=== PATIENT | female | born 1950 | race Caucasian/White ===

== ENCOUNTER 2020-10-21 13:11 | Observation (INO) ==
[2020-10-21] MEDS ORDERED: SODIUM CHLORIDE 0.9% 1,000 ML IV STA (13:45)
[2020-10-21 14:01] LABS: INR 1.2; PT Patient Result 12.3 SECS (9.8-11.9)
[2020-10-21 14:13] LABS: Alanine Aminotransferase 22 U/L (13-56); Albumin 3.1 G/DL (3.4-5.0); Alkaline Phosphatase 215 U/L (45-117); Aspartate Amino Transferase 35 U/L (0-37); Blood Urea Nitrogen 27 MG/DL (7-18); Calcium 8.7 MG/DL (8.5-10.1); Carbon Dioxide 26 MMOL/L (21-32); Estimated Glom Filtration Rate 46 ML/MIN; Glucose 162 MG/DL (74-106); Osmolality,Calculated 285.5 MOS/KG (273-304); Potassium 5.1 MMOL/L (3.5-5.1); Sodium 139 MMOL/L (136-145); Total Protein 7.1 G/DL (6.4-8.3)
[2020-10-21 15:42] LABS: Basophils % 0.7 % (0.0-0.8); Eosinophils # 0.1 10*3/uL (0.0-0.87); Eosinophils % 0.8 % (0.00-10.9); Hematocrit 34.6 VOL% (35.7-47.0); Hemoglobin 11.6 GM/DL (12.0-16.0); Immature Granulocytes % 0.3 %; Immature Granulocytes Absolute 0.02 #; Lymphocytes # 1.1 10*3/uL (1.4-4.0); Lymphocytes % 17.6 % (21.3-54.2); Mean Corpuscular HGB Conc 33.5 GM/DL (32-36); Mean Corpuscular Volume 95.8 FL (87-102); Mean Platelet Volume 10.4 FL (9.6-12.0); Monocytes % 11.2 % (1.7-12.7); Neutrophils % 69.4 % (38.7-73.9); Red Blood Count 3.61 MC/CUMM (3.8-5.5); Red Cell Distribution Width 15.1 % (9.3-17.3); White Blood Count 6.2 T/CUMM (4-12)
[2020-10-21 15:43] LABS: Platelet Count 54 T/CUMM (130-400)
[2020-10-21 15:50] LABS: Bacteria,Urine Occasional /HPF (Few); Bilirubin,Urine Negative (Negative); Blood, Urine Moderate mg/dL (Negative); Glucose,Urine (UA) Negative (Negative); Ketones,Urine Negative (Negative); Mucus,Urine Occasional /LPF (Occasional); Nitrite,Urine Negative (Negative); Protein,Urine 100 MG/DL; RBC,Urine 74 /HPF (0-4); Squamous Epithelial Cell,Urine Occasional /HPF (0-10); Triple Phosphate Crystal,Urine Occasional /HPF (Few); Urine Appearance CLOUDY (Clear); Urine Color Amber (Yellow); Urine Specific Gravity 1.015 (1.001-1.035); WBC,Urine 19 /HPF (0-6)
[2020-10-21] MEDS ORDERED: cefTRIAXone 1,000 MG in SODIUM CHLORIDE 0.9% 100 ML IV STA (15:51)
[2020-10-21 15:55] LABS: Barbiturates Screen,Urine Negative (Negative); Benzodiazepines Screen,Urine Negative (Negative); Cannabinoid Screen,Urine Negative (Negative); Opiate Screen,Urine Positive (Negative); Phencyclidine Screen,Urine Negative (Negative)
[2020-10-21] MEDS ORDERED: ONDANSETRON 4 MG/2 ML VIAL IV PRN (16:19)
[2020-10-21] MEDS ORDERED: NICOTINE 21 MG/24 HR PATCH TRANSDERM PRN (16:19)
[2020-10-21] MEDS ORDERED: GLUCAGON 1 MG VIAL IM PRN ×2 (16:19→16:23)
[2020-10-21] MEDS ORDERED: MORPHINE 4 MG/1 ML VIAL IV PRN (16:19)
[2020-10-21] MEDS ORDERED: DEXTROSE 50% 25 GM/50 ML VIAL IV PRN ×2 (16:19→16:23)
[2020-10-21 16:23] LABS: Platelet Estimate Decreased
[2020-10-21] MEDS ORDERED: hydrALAZINE 20 MG/1 ML VIAL IV PRN (16:23)
[2020-10-21] MEDS ORDERED: cefTRIAXone 1,000 MG in SYRINGE 1 EACH IV SCH (16:30)
[2020-10-21] MEDS: SODIUM CHLORIDE 0.9% 1,000 ML IV SCH (17:40)
[2020-10-21] MEDS ORDERED: PRAMIPEXOLE 0.25 MG TABLET PO SCH (21:00)
[2020-10-21] MEDS: LACTULOSE 20 GM/30 ML UDCUP PO SCH (21:52)
[2020-10-21] MEDS: GABAPENTIN 600 MG TABLET PO SCH (21:55)
[2020-10-21] MEDS: cilostazoL 50 MG TABLET PO SCH (21:55)
[2020-10-21] MEDS: SUCRALFATE 1 GM TABLET PO SCH (21:56)
[2020-10-21] MEDS: INSULIN REGULAR 100 UNIT/ML SUBCUT SCH (21:56)
[2020-10-21] MEDS: PANTOPRAZOLE 40 MG TABLET PO SCH (21:59)
[2020-10-22] MEDS: ALBUTEROL 2.5 MG/3 ML NEB RESP TX SCH ×4 (05:13→12:35)
[2020-10-22 05:57] LABS: Basophils % 0.6 % (0.0-0.8); Hematocrit 34.2 VOL% (35.7-47.0); Hemoglobin 11.5 GM/DL (12.0-16.0); Immature Granulocytes % 0.4 %; Immature Granulocytes Absolute 0.02 #; Lymphocytes # 0.9 10*3/uL (1.4-4.0); Lymphocytes % 17.6 % (21.3-54.2); Mean Corpuscular HGB Conc 33.6 GM/DL (32-36); Mean Corpuscular Volume 96.1 FL (87-102); Mean Platelet Volume 10.5 FL (9.6-12.0); Monocytes % 13.2 % (1.7-12.7); Neutrophils % 68.2 % (38.7-73.9); Red Blood Count 3.56 MC/CUMM (3.8-5.5); Red Cell Distribution Width 14.8 % (9.3-17.3); White Blood Count 5.1 T/CUMM (4-12)
[2020-10-22 05:59] LABS: Platelet Count 50 T/CUMM (130-400)
[2020-10-22 06:16] LABS: Albumin 2.5 G/DL (3.4-5.0); Bilirubin,Total 2.1 MG/DL (0.2-1.0); Calcium 8.4 MG/DL (8.5-10.1); Osmolality,Calculated 287.4 MOS/KG (273-304); Potassium 4.8 MMOL/L (3.5-5.1); Risk Ratio 3.44; Total Protein 6.2 G/DL (6.4-8.3); VLDL CHOLESTEROL 18.4 MG/DL
[2020-10-22] MEDS: GABAPENTIN 600 MG TABLET PO SCH ×4 (06:19→16:50)
[2020-10-22 06:29] LABS: Hypochromasia 1+; Microcytosis 1+; Platelet Estimate Decreased
[2020-10-22] MEDS ORDERED: ENOXAPARIN 30 MG/0.3 ML SYRINGE SUBCUT SCH (09:00)
[2020-10-22] MEDS ORDERED: ASPIRIN EC 81 MG TABLET PO SCH (09:00)
[2020-10-22] MEDS ORDERED: VENLAFAXINE XR 37.5 MG CAPSULE PO SCH (09:00)
[2020-10-22] MEDS ORDERED: FERROUS SULFATE 325 MG TABLET PO SCH (09:00)
[2020-10-22] MEDS ORDERED: METOPROLOL SUCCINATE XL 50 MG TABLET PO SCH (09:00)
[2020-10-22] MEDS ORDERED: allopurinoL 100 MG TABLET PO SCH (09:00)
[2020-10-22] MEDS ORDERED: SIMVASTATIN 40 MG TABLET PO SCH (09:00)
[2020-10-22] MEDS: INSULIN REGULAR 100 UNIT/ML SUBCUT SCH ×3 (09:14→16:50)
[2020-10-22] MEDS: SUCRALFATE 1 GM TABLET PO SCH ×3 (10:38→16:50)
[2020-10-22] MEDS: PANTOPRAZOLE 40 MG TABLET PO SCH (10:39)
[2020-10-22] MEDS: LACTULOSE 20 GM/30 ML UDCUP PO SCH (10:40)
[2020-10-22] MEDS: SODIUM CHLORIDE 0.9% 1,000 ML IV SCH (11:38)
[2020-10-22] MEDS: cilostazoL 50 MG TABLET PO SCH (12:51)
[2020-10-22] MEDS ORDERED: cefTRIAXone 1,000 MG in SYRINGE 1 EACH IV SCH (14:00)
[2020-10-22] MEDS ORDERED: DESITIN 4OZ/NYSTATIN 15 GRAM MIXTURE PASTE TOP SCH (14:30)
[2020-10-22 16:38] VITALS: BP 145/64
== END 2020-10-22 18:10 | disposition home health service (06) ==
LOC: EDUNIT# → EDBD → N.EDINP 13:11 → N.ED 13:11 → N.EDINP 18:30 → N.4E 18:41
PROVIDERS: ADMIT Internal Medicine; ATTEND Internal Medicine

== ENCOUNTER 2021-10-15 16:59 | Inpatient (IN) ==
[2021-10-15 19:03] LABS: Albumin 2.4 G/DL (3.4-5.0); Bilirubin,Total 0.8 MG/DL (0.20-1.00); Calcium 9.4 MG/DL (8.5-10.1); Osmolality,Calculated 303.2 MOS/KG (273-304); Potassium 4.4 MMOL/L (3.5-5.1); Total Protein 7.2 G/DL (6.4-8.2)
[2021-10-15 19:04] LABS: Lactic Acid 1.4 MMOL/L (0.4-2.0)
[2021-10-15 19:07] LABS: Basophils # 0.1 10*3/uL (0.0-0.2); Basophils % 0.6 % (0.0-0.8); Hematocrit 33.2 VOL% (35.7-47.0); Hemoglobin 10.2 GM/DL (12.0-16.0); Immature Granulocytes % 0.7 %; Immature Granulocytes Absolute 0.07 #; Lymphocytes # 1.1 10*3/uL (1.4-4.0); Lymphocytes % 11.2 % (21.3-54.2); Mean Corpuscular HGB Conc 30.7 GM/DL (32-36); Mean Corpuscular Volume 100.9 FL (87-102); Mean Platelet Volume 10.6 FL (9.6-12.0); Monocytes % 11.2 % (1.7-12.7); Neutrophils % 76.3 % (38.7-73.9); Platelet Count 112 T/CUMM (130-400); Red Blood Count 3.29 MC/CUMM (3.8-5.5); Red Cell Distribution Width 14.6 % (9.3-17.3); White Blood Count 9.8 T/CUMM (4-12)
[2021-10-15 19:39] LABS: ABG Base Excess 3.1 MMOL/L (-2.5-2.5); ABG HCO3 27.1 MMOL/L (20-26); ABG Oxygen Saturation 92.7 % (95-100); ABG PH 7.265 (7.35-7.45); ABG PO2 70.7 MM HG (80-95); ABG TCO2 29.6 MMOL/L (23-27)
[2021-10-15 19:43] LABS: ABG PCO2 70.8 MM HG (35-48)
[2021-10-15] MEDS ORDERED: SODIUM CHLORIDE 0.9% 500 ML IV STA (19:47)
[2021-10-15] MEDS ORDERED: ACETAMINOPHEN 325 MG TABLET PO PRN (20:05)
[2021-10-15] MEDS ORDERED: GLUCAGON 1 MG VIAL IM PRN (20:05)
[2021-10-15] MEDS ORDERED: ONDANSETRON 4 MG/2 ML VIAL IV PRN (20:05)
[2021-10-15] MEDS ORDERED: DEXTROSE 50% 25 GM/50 ML SYRINGE IV PRN (20:05)
[2021-10-15] MEDS ORDERED: hydrALAZINE 20 MG/1 ML VIAL IV PRN (20:05)
[2021-10-15 20:07] LABS: INR 1.1; PT Patient Result 11.9 SECS (10.5-12.0); Partial Thromboplastin Time 26.8 SECS (23.8-32.1)
[2021-10-15 20:07] LABS: Bilirubin,Urine Negative (Negative); Blood, Urine Large mg/dL (Negative); Glucose,Urine (UA) Negative (Negative); Ketones,Urine Negative (Negative); Mucus,Urine Occasional /LPF (Occasional); Nitrite,Urine Negative (Negative); Protein,Urine 30 MG/DL; RBC,Urine 225 /HPF (0-4); Squamous Epithelial Cell,Urine Occasional /HPF (0-10); Urine Appearance Slightly Hazy (Clear); Urine Color Amber (Yellow); Urine Specific Gravity 1.015 (1.001-1.035); Urine Urobilinogen < 2.0 EU/DL (0.2-1.0)
[2021-10-15 20:12] LABS: Barbiturates Screen,Urine Negative (Negative); Benzodiazepines Screen,Urine Negative (Negative); Cannabinoid Screen,Urine Negative (Negative); Opiate Screen,Urine Positive (Negative); Phencyclidine Screen,Urine Negative (Negative)
[2021-10-15] MEDS ORDERED: cefTRIAXone 1,000 MG in SODIUM CHLORIDE 0.9% 100 ML IV STA (20:14)
[2021-10-15] MEDS: LACTULOSE 20 GM/30 ML UDCUP PO SCH (21:46)
[2021-10-15 22:24] LABS: ABG Base Excess 3.9 MMOL/L (-2.5-2.5); ABG HCO3 27.6 MMOL/L (20-26); ABG Oxygen Saturation 80.7 % (95-100); ABG PCO2 64.9 MM HG (35-48); ABG PH 7.301 (7.35-7.45); ABG TCO2 29.6 MMOL/L (23-27)
[2021-10-15] MEDS ORDERED: VANCOMYCIN INJ 3,000 MG in SODIUM CHLORIDE 0.9% 500 ML IV ONE (23:00)
[2021-10-15] MEDS ORDERED: ZINC OXIDE PASTE 113 GM TUBE TOP PRN (23:35)
[2021-10-16] MEDS: LACTULOSE 20 GM/30 ML UDCUP PO SCH ×6 (00:40→22:24)
[2021-10-16] MEDS: INSULIN REGULAR 100 UNIT/ML SUBCUT SCH ×5 (00:41→22:25)
[2021-10-16 01:07] LABS: ABG Base Excess 4.4 MMOL/L (-2.5-2.5); ABG HCO3 28.3 MMOL/L (20-26); ABG Oxygen Saturation 90.6 % (95-100); ABG PCO2 64.5 MM HG (35-48); ABG PH 7.308 (7.35-7.45); ABG PO2 62.7 MM HG (80-95); ABG TCO2 29.9 MMOL/L (23-27)
[2021-10-16 07:19] LABS: Basophils # 0.1 10*3/uL (0.0-0.2); Basophils % 0.6 % (0.0-0.8); Eosinophils % 0.1 % (0.00-10.9); Hematocrit 32.8 VOL% (35.7-47.0); Hemoglobin 10.1 GM/DL (12.0-16.0); Immature Granulocytes % 0.5 %; Immature Granulocytes Absolute 0.04 #; Lymphocytes # 1.1 10*3/uL (1.4-4.0); Lymphocytes % 12.9 % (21.3-54.2); Mean Corpuscular HGB Conc 30.8 GM/DL (32-36); Mean Corpuscular Volume 101.5 FL (87-102); Mean Platelet Volume 10.4 FL (9.6-12.0); Monocytes % 11.3 % (1.7-12.7); Neutrophils % 74.6 % (38.7-73.9); Platelet Count 96 T/CUMM (130-400); Red Blood Count 3.23 MC/CUMM (3.8-5.5); Red Cell Distribution Width 14.6 % (9.3-17.3); White Blood Count 8.3 T/CUMM (4-12)
[2021-10-16 07:20] LABS: Calcium 9.3 MG/DL (8.5-10.1); Potassium 4.4 MMOL/L (3.5-5.1); Risk Ratio 2.93; Thyroid Stimulating Hormone 1.32 uIU/ml (0.358-3.74)
[2021-10-16 07:37] LABS: Hypochromasia 1+; Macrocytosis 1+; Polychromasia Slight
[2021-10-16 07:38] LABS: Platelet Estimate Decreased
[2021-10-16] MEDS ORDERED: PIPERACILLIN/TAZOBACTAM 3,375 MG in SODIUM CHLORIDE 0.9% 100 ML IV SCH (08:00)
[2021-10-16] MEDS ORDERED: PANTOPRAZOLE 40 MG TABLET PO SCH (09:00)
[2021-10-16] MEDS: PANTOPRAZOLE 40 MG VIAL IV SCH (09:56)
[2021-10-16] MEDS: cefTRIAXone 2,000 MG in SODIUM CHLORIDE 0.9% 100 ML IV SCH (17:10)
[2021-10-16] MEDS: AZITHROMYCIN INJ 500 MG in SODIUM CHLORIDE 0.9% 250 ML IV SCH (18:08)
[2021-10-17] MEDS: LACTULOSE 20 GM/30 ML UDCUP PO SCH ×6 (01:48→21:20)
[2021-10-17 02:26] LABS: ABG Base Excess 4.4 MMOL/L (-2.5-2.5); ABG HCO3 27.5 MMOL/L (20-26); ABG Oxygen Saturation 48.2 % (95-100); ABG PCO2 66.9 MM HG (35-48); ABG PH 7.296 (7.35-7.45); ABG TCO2 30.4 MMOL/L (23-27)
[2021-10-17 02:31] LABS: ABG PO2 30.2 MM HG (80-95)
[2021-10-17] MEDS ORDERED: LACTULOSE 320 GM/480 ML BOTTLE RECTAL ONE (02:56)
[2021-10-17 05:53] LABS: Basophils # 0.1 10*3/uL (0.0-0.2); Basophils % 0.7 % (0.0-0.8); Hematocrit 33.1 VOL% (35.7-47.0); Hemoglobin 10.3 GM/DL (12.0-16.0); Immature Granulocytes % 0.7 %; Immature Granulocytes Absolute 0.07 #; Lymphocytes # 1.6 10*3/uL (1.4-4.0); Lymphocytes % 15.5 % (21.3-54.2); Mean Corpuscular HGB Conc 31.1 GM/DL (32-36); Mean Corpuscular Volume 101.2 FL (87-102); Mean Platelet Volume 10.3 FL (9.6-12.0); Monocytes % 12.1 % (1.7-12.7); Platelet Count 90 T/CUMM (130-400); Red Blood Count 3.27 MC/CUMM (3.8-5.5); Red Cell Distribution Width 14.8 % (9.3-17.3); White Blood Count 10.2 T/CUMM (4-12)
[2021-10-17 06:09] LABS: Lactic Acid 1.9 MMOL/L (0.4-2.0)
[2021-10-17 06:16] LABS: Anisocytosis Slight; Macrocytosis Slight; Platelet Estimate Decreased
[2021-10-17 06:37] LABS: Albumin 2.2 G/DL (3.4-5.0); Bilirubin,Total 0.9 MG/DL (0.20-1.00); Calcium 9.2 MG/DL (8.5-10.1); Osmolality,Calculated 301.8 MOS/KG (273-304); Potassium 4.4 MMOL/L (3.5-5.1); Total Protein 6.9 G/DL (6.4-8.2)
[2021-10-17] MEDS: INSULIN REGULAR 100 UNIT/ML SUBCUT SCH ×4 (07:43→21:20)
[2021-10-17] MEDS: PANTOPRAZOLE 40 MG VIAL IV SCH (09:32)
[2021-10-17] MEDS ORDERED: ALBUMIN 25% 50 GM/200 ML VIAL IV ONE (13:30)
[2021-10-17] MEDS: cefTRIAXone 2,000 MG in SODIUM CHLORIDE 0.9% 100 ML IV SCH (16:20)
[2021-10-17] MEDS: MENTHOL/ZINC OXIDE OINT 71 GM JAR TOP SCH ×2 (17:10→21:21)
[2021-10-17] MEDS: AZITHROMYCIN INJ 500 MG in SODIUM CHLORIDE 0.9% 250 ML IV SCH (17:21)
[2021-10-17] MEDS ORDERED: VANCOMYCIN INJ 2,500 MG in SODIUM CHLORIDE 0.9% 500 ML IV PRN (23:00)
[2021-10-17] MEDS ORDERED: ALUMINUM/MAGNES/SIMETH MAX STR 30 ML UDCUP PO PRN (23:57)
[2021-10-18] MEDS: LACTULOSE 20 GM/30 ML UDCUP PO SCH ×5 (02:32→20:33)
[2021-10-18 05:12] LABS: Basophils # 0.1 10*3/uL (0.0-0.2); Hematocrit 27.4 VOL% (35.7-47.0); Hemoglobin 8.6 GM/DL (12.0-16.0); Immature Granulocytes % 0.9 %; Immature Granulocytes Absolute 0.06 #; Lymphocytes # 1.1 10*3/uL (1.4-4.0); Lymphocytes % 16.2 % (21.3-54.2); Mean Corpuscular HGB Conc 31.4 GM/DL (32-36); Mean Corpuscular Volume 98.9 FL (87-102); Mean Platelet Volume 10.4 FL (9.6-12.0); Monocytes % 13.1 % (1.7-12.7); Neutrophils % 68.8 % (38.7-73.9); Platelet Count 92 T/CUMM (130-400); Red Blood Count 2.77 MC/CUMM (3.8-5.5)
[2021-10-18 05:34] LABS: Albumin 2.6 G/DL (3.4-5.0); Bilirubin,Total 1.2 MG/DL (0.20-1.00); Calcium 9.6 MG/DL (8.5-10.1); Osmolality,Calculated 308.4 MOS/KG (273-304); Potassium 3.3 MMOL/L (3.5-5.1)
[2021-10-18 05:53] LABS: Anisocytosis 1+; Macrocytosis 1+; Platelet Estimate Decreased
[2021-10-18] MEDS: MENTHOL/ZINC OXIDE OINT 71 GM JAR TOP SCH ×2 (09:22→20:36)
[2021-10-18] MEDS: PANTOPRAZOLE 40 MG VIAL IV SCH (09:22)
[2021-10-18] MEDS: INSULIN REGULAR 100 UNIT/ML SUBCUT SCH ×4 (10:28→22:05)
[2021-10-18] MEDS: POTASSIUM CHLORIDE RIDER 10 MEQ/100 ML PREMIX IV PRN ×3 (10:53→12:50)
[2021-10-18] MEDS: FUROSEMIDE 40 MG TABLET PO SCH (14:11)
[2021-10-18] MEDS: cefTRIAXone 2,000 MG in SODIUM CHLORIDE 0.9% 100 ML IV SCH (14:15)
[2021-10-18] MEDS: AZITHROMYCIN INJ 500 MG in SODIUM CHLORIDE 0.9% 250 ML IV SCH (16:35)
[2021-10-19 05:14] LABS: Basophils # 0.1 10*3/uL (0.0-0.2); Basophils % 0.8 % (0.0-0.8); Hematocrit 30.6 VOL% (35.7-47.0); Hemoglobin 9.5 GM/DL (12.0-16.0); Immature Granulocytes % 0.7 %; Immature Granulocytes Absolute 0.06 #; Lymphocytes # 1.1 10*3/uL (1.4-4.0); Lymphocytes % 12.9 % (21.3-54.2); Mean Corpuscular Volume 100.3 FL (87-102); Mean Platelet Volume 10.2 FL (9.6-12.0); Monocytes % 9.5 % (1.7-12.7); Neutrophils % 76.1 % (38.7-73.9); Platelet Count 97 T/CUMM (130-400); Red Blood Count 3.05 MC/CUMM (3.8-5.5); Red Cell Distribution Width 15.4 % (9.3-17.3); White Blood Count 8.4 T/CUMM (4-12)
[2021-10-19 05:33] LABS: Albumin 2.5 G/DL (3.4-5.0); Bilirubin,Total 0.8 MG/DL (0.20-1.00); Calcium 9.6 MG/DL (8.5-10.1); Osmolality,Calculated 308.5 MOS/KG (273-304); Potassium 3.5 MMOL/L (3.5-5.1); Total Protein 6.5 G/DL (6.4-8.2)
[2021-10-19 05:39] LABS: Lactic Acid 1.4 MMOL/L (0.4-2.0)
[2021-10-19 05:41] LABS: Hypochromasia 1+; Macrocytosis 1+
[2021-10-19 05:42] LABS: Platelet Estimate Decreased; Polychromasia Slight
[2021-10-19] MEDS: FUROSEMIDE 40 MG TABLET PO SCH (09:01)
[2021-10-19] MEDS: LACTULOSE 20 GM/30 ML UDCUP PO SCH ×2 (09:01→15:09)
[2021-10-19] MEDS: INSULIN REGULAR 100 UNIT/ML SUBCUT SCH ×2 (09:02→12:17)
[2021-10-19] MEDS: MENTHOL/ZINC OXIDE OINT 71 GM JAR TOP SCH (09:13)
[2021-10-19] MEDS ORDERED: ALBUMIN 25% 12.5 GM/50 ML VIAL IV ONE ×2 (13:57→14:20)
[2021-10-19 14:13] VITALS: BP 146/60
[2021-10-19] MEDS ORDERED: AZITHROMYCIN 250 MG TABLET PO SCH (15:00)
[2021-10-19] MEDS: cefTRIAXone 2,000 MG in SODIUM CHLORIDE 0.9% 100 ML IV SCH (15:09)
[2021-10-20] MEDS ORDERED: PANTOPRAZOLE 40 MG TABLET PO SCH (06:30)
== END 2021-10-19 16:20 | DRG 433 ==
LOC: EDBD → EDUNIT# → N.ED 16:59 → N.EDINP 20:05 → N.5E 22:32
PROVIDERS: ADMIT Internal Medicine; ATTEND Internal Medicine